=== PATIENT | female | born 2000 | race Caucasian/White ===

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

== ENCOUNTER → 2022-01-23 11:15 | Outpatient (BNVA) | payer MEDICAID, SELFPAY | PROVIDERS: PCP Family Medicine; Visit Provider Nurse Practitioner Women's Health | DX: O99.320 Drug use complicating pregnancy, unspecified trimester (principal); F12.90 Cannabis use, unspecified, uncomplicated; Z3A.00 Weeks of gestation of pregnancy not specified | CPT/HCPCS: 80307; 82105; 84315; 86787 ==

== ENCOUNTER 2022-02-02 18:06 | Emergency (ER) | payer MEDICAID, SELFPAY ==
[2022-02-02 18:36] VITALS: BP 108/73; PULSE 104; RESP 18; TEMP 36.4; O2SAT 98; BMI 34.3
[2022-02-02 20:54] LABS: SARS Covid-2 Antigen positive (Negative)
[2022-02-02 21:10] LABS: Influenza A by IFA negative (Negative); Influenza B by IFA negative (Negative)
--- NOTE | 2022-02-02 22:18 | ED_ITS ---
HPI - General Adult General: Chief complaint: General Medical Stated complaint: Stuffy Nose\Weakness Time Seen by Provider: 02/02/22 22:04 Source: patient Mode of arrival: ambulatory Limitations: no limitations History of Present Illness: 21-year-old female states over the last 2 days has been having cough congestion low-grade fever states he is also had body aches states has been around sick contacts. She had no vomiting or diarrhea she is currently 19 weeks she has no complaints no abdominal pain no vaginal bleeding. She denies any worsening proving factors. Associated symptoms: Deny chest pain, dyspnea, headache(s), nausea, rash or vomiting Review of Systems Const: Reports: fever(s), chills and body aches; Denies: change in appetite Eyes: Denies: blurry vision or eye discomfort ENMT: Denies: throat pain or dental pain Card: Denies: chest pain Resp: Reports: non-productive cough; Denies: dyspnea GI: Denies: abdominal pain, nausea, vomiting or diarrhea : Denies: dysuria Musc: Denies: neck pain or back pain Skin/Breast: Denies: rash Neuro: Denies: headache(s) Psych: Denies: depression Guero/Lymph: Denies: easy bruising All/Imm: Denies: urticaria PFSH ED PFSH: Medical History No pertinent past medical history neghx: htn,dm,thyroid,dvt/pe PCP: Marcos Barroso Surgical History S/P T&A (status post tonsillectomy and adenoidectomy) at age 9 Family History Grandmother Thyroid disease Maternal Denies family history of Colon cancer Ovarian cancer Diabetes Heart disease Hypercholesteremia Breast cancer Hypertension Uterine cancer Stroke Social History Smoking and tobacco status: never smoked Physical Exam Const: COMMON NORMALS: no acute distress, patient oriented x3 and healthy appearing HENMT: COMMON NORMALS: normocephalic and atraumatic HEAD & SCALP: normocephalic and atraumatic Eye: COMMON NORMALS: Equal, round and reactive pupils present and EOMs intact bilaterally PUPIL: Yes Equal, round and reactive pupils present Neck/C-Spine: COMMON NORMALS: full ROM and supple Chest: COMMONS NORMALS: normal inspection of the chest and normal palpation of entire chest wall Resp: COMMON NORMALS: normal respiratory effort, No retractions, No use of accessory muscles and clear to auscultation bilaterally AUSCULTATION: clear to auscultation bilaterally Cardio: COMMON NORMALS: regular rate, regular rhythm and No murmurs present (Cardio) RATE: regular rate RHYTHM: regular rhythm GI: COMMON NORMALS: Normal to inspection, nondistended, normoactive bowel sounds present, Soft to palpation, non-tender and no masses PALPATION: Yes Soft to palpation Extremity: COMMON NORMALS: normal to inspection and full ROM Neuro: COMMON NORMALS: patient oriented x3, moves all extremities and no focal motor deficits Psych: COMMON NORMALS: mental status grossly normal, Normal thought process present and cooperative THOUGHT PROCESS: Normal thought process present Skin: COMMON NORMALS: no rashes or lesions noted and no wounds GENERAL SKIN EXAM: no rashes or lesions noted Course Vital Signs: Vital signs: Vital Signs Temperature 97.6 F 02/02/22 18:36 Pulse Rate 104 H 02/02/22 18:36 Respiratory Rate 18 02/02/22 18:36 Blood Pressure 108/73 02/02/22 18:36 Pulse Oximetry 98 02/02/22 18:36 Oxygen Delivery Me thod 02/02/22 18:36 [facility] - General Adult Medical Decision Making Patient presents here with cough congestion did test positive for COVID she is well-appearing here she is in no respiratory distress patient given Decadron she is stable for discharge. Lab Data Laboratory Results Influenza Type A Ag negative (Negative) 02/02/22 19:19 Influenza Type B Ag negative (Negative) 02/02/22 19:19 SARS-CoV-2 Ag (Rapid) positive (Negative) 02/02/22 19:19 Discharge Plan Discharge Patient Disposition: Home Clinical Impression: COVID-19 Condition: Stable Prescriptions: No Action acetaminophen [Tylenol] 325 mg Capsule 325 mg PO QID PRN (Reason: Pain) 28-800 mg-mcg Tablet 1 tab PO DAILY Discharge Orders: Discharge ED (Routine); Ordered 02/02/22 Ordered By: Zuleima Omalley Referrals: Jess Capmuzano MD [Primary Care Provider] - Discharge Diet: Advance as tolerated Discharge Activity: Resume usual activity Patient Instructions: COVID-19 (Coronavirus Disease 2019) (ED) Coding Level of Care Code ED Hvac Residential Service Technician for Royal Powers
[2022-02-02] MEDS: dexamethasone 10 mg/mL INJ IM (22:29)
== END 2022-02-02 22:38 | disposition home or self-care (01) ==
PROVIDERS: Emergency Medicine; Emergency Provider Emergency Medicine; PCP Family Medicine
DX: O98.512 Other viral diseases complicating pregnancy, second trimester (principal); U07.1 COVID-19; Z3A.19 19 weeks gestation of pregnancy
CPT/HCPCS: 87426; 87804; 96372; 99284; J1100

== ENCOUNTER → 2022-02-20 10:47 | Outpatient (BNVA) | payer MEDICAID, SELFPAY | PROVIDERS: PCP Family Medicine; Visit Provider Obstetrics & Gynecology | DX: Z34.92 Encounter for supervision of normal pregnancy, unspecified, second trimester (principal); Z3A.20 20 weeks gestation of pregnancy | CPT/HCPCS: 76805 ==

== ENCOUNTER 2024-07-21 10:26 | Emergency (ER) | payer MEDICAID, SELFPAY ==
[2024-07-21 10:34] VITALS: BP 128/81; PULSE 92; RESP 16; TEMP 36.8; O2SAT 98
--- NOTE | 2024-07-21 10:51 | ED_ITS ---
HPI - General Adult 2 General: Chief complaint: Headache Stated complaint: n/v, IYER, dizzy Time Seen by Provider: 07/21/24 10:29 Source: patient Mode of arrival: ambulatory Limitations: no limitations History of Present Illness: Patient is a 24-year-old female presents to ED today with a complaint of a headache and nausea. Symptoms have been intermittent over the past several days. She has been using Tylenol and Ibuprofen to treat symptoms. She states she is . Was unaware she was not supposed to be taking anti- inflammatories while . States she has not had any OB care up until this point but does have an upcoming appointment early July with the OB she used for previous pregnancies in [place]. She is not having any abdominal or pelvic pain or vaginal bleeding. Denies visual changes. No vomiting. Onset (ago): day(s) Location: head Radiation: non-radiation Severity: mild Severity scale (1-10): 6 Relieving factors: none Exacerbating factors: none Associated symptoms: Reports headache(s) and nausea; Deny chest pain, dyspnea, malaise, rash or vomiting Treatments prior to arrival: none Related Data Home Medications ?Medication ?Instructions ?Recorded ?Confirmed vit no.133-ferrous 1 tab PO DAILY 11/17/21 fumarate 28 mg-folic acid 800 mcg tablet () acetaminophen 325 mg tablet 325 mg PO QID PRN Pain 07/21/24 Allergies Allergy/AdvReac Type Severity Reaction Status Date / Time Penicillins Allergy breaking Verified 03/06/24 09:22 out Review of Systems 2 Const: Denies: fever(s), chills, body aches, fatigue or malaise Card: Denies: chest pain Resp: Denies: dyspnea GI: Reports: nausea; Denies: abdominal pain, vomiting, diarrhea or change in bowel habits : Denies: flank pain, difficulty voiding, dysuria, urinary frequency, urinary urgency, urinary hesitancy or pelvic pain Musc: Denies: neck pain, back pain, extremity pain, extremity swelling, joint pain or joint swelling Skin/Breast: Denies: rash Neuro: Reports: headache(s); Denies: numbness in extremities, weakness in extremities or sensory changes PFSH ED 2 PFSH: Medical History Psychiatric care No pertinent past medical history neghx: htn,dm,thyroid,dvt/pe PCP: Dr. Gregory-- [facility] Surgical History S/P T&A (status post tonsillectomy and adenoidectomy) at age 9 Family History Grandmother Thyroid disease Maternal Denies family history of Colon cancer Ovarian cancer Diabetes Heart disease Hypercholesteremia Breast cancer Hypertension Uterine cancer Stroke Social History Smoking and tobacco/nicotine status: never used tobacco/nicotine Substance/Drug Use: never Do you think of yourself as: Straight/Heterosexual Physical Exam 2 Const: COMMON NORMALS: no acute distress, patient oriented x3, no limitations, alert and well nourished GENERAL APPEARANCE: cooperative Eye: COMMON NORMALS: no scleral icterus Resp: COMMON NORMALS: normal respiratory effort and clear to auscultation bilaterally AUSCULTATION: clear to auscultation bilaterally Cardio: COMMON NORMALS: regular rate and regular rhythm RATE: regular rate RHYTHM: regular rhythm GI: COMMON NORMALS: Normal to inspection, nondistended, normoactive bowel sounds present, Soft to palpation, non-tender and no masses PALPATION: Yes Soft to palpation OTHER: bedside US performed showing intrauterine fetus with normal activity : COMMON NORMALS: Yes no CVA tenderness BLADDER/KIDNEY EXAM: Yes no CVA tenderness Back/Pelvis: COMMON NORMALS: no CVA tenderness Extremity: GENERAL: Yes normal exam except as noted Neuro: COMMON NORMALS: patient oriented x3 SENSORIUM/ORIENTATION: Yes alert Course 2 Vital Signs: Vital signs: Vital Signs Temperature 98.2 F 07/21/24 10:34 Pulse Rate 92 07/21/24 10:34 Respiratory Rate 16 07/21/24 10:34 Blood Pressure 128/81 07/21/24 10:34 Pulse Oximetry 98 07/21/24 10:34 [facility] - General Adult Medical Decision Making Headache is much improved after IV fluids, diphenhydramine, acetaminophen. Patient feels comfortable going home at this time. Recommend she follow-up with her OB provider as scheduled. Vital signs are stable. Blood work showing some mild anemia. She is taking a vitamin. Chemistry showing mild hypokalemia with a potassium of 3.2. She was given supplementation for that here. LFTs are slightly elevated. No known history of hepatic steatosis or hepatitis. These can be followed through her OB. LMP puts her at approximately 12 weeks gestation. Bedside ultrasound shows a fetus fairly consistent with that gestation. Return to ED precautions discussed. Medical Records I reviewed the patient's medical records. Lab Data I reviewed the patient's lab results. 07/21/24 10:50 07/21/24 10:50 Laboratory Results WBC 6.06 10^3/uL (3.29-11.43) 07/21/24 10:50 RBC 4.33 10^6/uL (3.85-5.65) 07/21/24 10:50 Hgb 11.40 g/dL (11.27-16.99) 07/21/24 10:50 Hct 35.6 % (36-47) L 07/21/24 10:50 MCV 82.2 fl (85-98) L 07/21/24 10:50 MCH 26.3 pg (27-33) L 07/21/24 10:50 MCHC 32.0 g/dL (30-55) 07/21/24 10:50 RDW 15.6 % (12.1-15.1) H 07/21/24 10:50 Plt Count 435 10^3/cmm (157-399) H 07/21/24 10:50 MPV 9.0 fL (7.4-10.4) 07/21/24 10:50 Neut % (Auto) 63.6 % 07/21/24 10:50 Lymph % (Auto) 26.1 % 07/21/24 10:50 Owen % (Auto) 8.3 % 07/21/24 10:50 Eos % (Auto) 1.2 % 07/21/24 10:50 Baso % (Auto) 0.5 % 07/21/24 10:50 Neut # (Auto) 3.86 10^3/uL (1.8-7.7) 07/21/24 10:50 Lymph # (Auto) 1.6 10^3/uL (0.8-4.8) 07/21/24 10:50 Owen # (Auto) 0.5 10^3/uL (0.2-0.9) 07/21/24 10:50 Eos # (Auto) 0.1 10^3/uL (0.0-0.8) 07/21/24 10:50 Baso # (Auto) 0.0 10^3/uL (0.0-0.1) 07/21/24 10:50 Nucleated RBC % (auto) 0 % 07/21/24 10:50 Nucleated RBCs # 0.0 /100WBC 07/21/24 10:50 Sodium 136 mmol/L (136-145) 07/21/24 10:50 Potassium 3.2 mmol/L (3.5-5.1) L 07/21/24 10:50 Chloride 99 mmol/L (98-107) 07/21/24 10:50 Carbon Dioxide 23 mmol/L (22-29) 07/21/24 10:50 Anion Gap 17.2 (5-19) 07/21/24 10:50 BUN 5 mg/dL (6-20) L 07/21/24 10:50 Creatinine 0.5 mg/dL (0.5-0.9) 07/21/24 10:50 GFR Calculation 154.3 mL/min (90-130) H 07/21/24 10:50 Glucose 92 mg/dL (65-115) 07/21/24 10:50 Calculated Osmolality 279 mOsm/kg (285-295) L 07/21/24 10:50 Calcium 10.1 mg/dL (8.5-10.5) 07/21/24 10:50 Total Bilirubin 0.4 mg/dL (0.15-1.2) 07/21/24 10:50 AST 43 U/L (0-32) H 07/21/24 10:50 ALT 77 U/L (0-33) H 07/21/24 10:50 Alkaline Phosphatase 111 U/L (35-105) H 07/21/24 10:50 Total Protein 7.3 g/dL (6.6-8.7) 07/21/24 10:50 Albumin 4.2 g/dL (3.5-5.2) 07/21/24 10:50 Globulin 3.1 g/dL (1.3-4.6) 07/21/24 10:50 Ser , Semi-Qnt 75155.00 mIU/mL 07/21/24 10:50 No radiology studies performed this visit Discharge Plan Discharge Patient Disposition: Home Clinical Impression: Headache Qualifiers: Headache type: unspecified Headache chronicity pattern: acute headache I ntractability: not intractable Qualified Code(s): R51.9 - Headache, unspecified Qualifiers: Weeks of gestation: 12 weeks Qualified Code(s): Z3A.12 - 12 weeks gestation of Condition: Stable Prescriptions: No Action acetaminophen 325 mg Tablet 325 mg PO QID PRN (Reason: Pain) 28-800 mg-mcg Tablet 1 tab PO DAILY Discharge Orders: Discharge ED (Routine); Ordered 07/21/24 Ordered By: Kathy Bourgeois Referrals: Jess Campuzano MD [Primary Care Provider] - Activity Restrictions/Additional Instructions: Please follow-up with your OB provider as scheduled. He may return to the emergency department at anytime for severe headache, visual changes, repetitive episodes of vomiting, abdominal pain, or any other concerns you may have. Print Language: Greenlandic Coding Level of Care Code ED Whittling Room Operator for Royal Powers
[2024-07-21 10:55] LABS: Basophils % 0.5 %; Eosinophils # 0.1 10^3/uL (0.0-0.8); Eosinophils % 1.2 %; Hematocrit 35.6 % (36-47); Lymphocytes # 1.6 10^3/uL (0.8-4.8); Lymphocytes % 26.1 %; Mean Corpuscular Hemoglobin 26.3 pg (27-33); Mean Corpuscular Volume 82.2 fl (85-98); Monocytes # 0.5 10^3/uL (0.2-0.9); Monocytes % 8.3 %; Neutrophils # 3.86 10^3/uL (1.8-7.7); Neutrophils % 63.6 %; Nucleated Red Blood Cells % 0 %; Platelet Count 435 10^3/cmm (157-399); Red Blood Count 4.33 10^6/uL (3.85-5.65); Red Cell Distribution Width 15.6 % (12.1-15.1); White Blood Count 6.06 10^3/uL (3.29-11.43)
[2024-07-21] MEDS: acetaminophen 1,000 MG/100 ML PIGGYBACK 400 MG IV (11:06)
[2024-07-21] MEDS: diphenhydrAMINE 50 mg/mL SDV 1mL 12.5 MG IVP (11:08)
[2024-07-21] MEDS: sodium chloride 0.9% 1,000 ML 999 ML IV (11:10)
[2024-07-21 11:25] LABS: Alanine Aminotransferase 77 U/L (0-33); Albumin Level 4.2 g/dL (3.5-5.2); Alkaline Phosphatase 111 U/L (35-105); Anion Gap 17.2 (5-19); Aspartate Amino Transferase 43 U/L (0-32); Blood Urea Nitrogen 5 mg/dL (6-20); Calcium 10.1 mg/dL (8.5-10.5); Carbon Dioxide 23 mmol/L (22-29); Chloride 99 mmol/L (98-107); Creatinine Clr Calc Pharmacy 193.2458; Globulin 3.1 g/dL (1.3-4.6); Glomerular Filtration Rate 154.3 mL/min (90-130); Glucose 92 mg/dL (65-115); Osmolality Calculated 279 mOsm/kg (285-295); Potassium 3.2 mmol/L (3.5-5.1); Sodium 136 mmol/L (136-145); Total Bilirubin 0.4 mg/dL (0.15-1.2); Total Protein 7.3 g/dL (6.6-8.7)
[2024-07-21 11:37] VITALS: BP 108/75; PULSE 83; O2SAT 94
[2024-07-21] MEDS: potassium chloride ER 20 mEq Tablet 40 MEQ PO (12:05)
[2024-07-21 12:12] VITALS: BP 112/73; PULSE 86; O2SAT 100
== END 2024-07-21 12:13 | disposition home or self-care (01) ==
PROVIDERS: Emergency Provider Physician Assistant; PCP Family Medicine
DX: R51.9 Headache, unspecified (principal); Z3A.12 12 weeks gestation of pregnancy
CPT/HCPCS: 80053; 84702; 85025; 96365; 96375; 99284; J0131; J1200; J7030; J9999